=== PATIENT | female | born 1950 | race Caucasian/White ===

== ENCOUNTER → 2024-11-24 | Outpatient (REF) | payer MEDICARE, BC ==
[~2024-11-24] MED LIST: IOPAMIDOL 370 MG/ML 100 ML INFUS..BTL INJ ONE
[2024-11-24 14:20] LABS: CREATININE, SERUM 0.87 mg/dL (0.57-1.11)
== END ==
LOC: CT 14:15
PROVIDERS: ATTEND Nurse Practitioner Family
DX: D64.9 Anemia, unspecified (principal)
CPT/HCPCS: 36415; 74177; 82565; 84520; Q9967